=== PATIENT | male | born 1985 | race Hispanic/Latino ===

== ENCOUNTER → 2016-10-02 | Outpatient (CLI) | payer OTHER ==
[2016-10-02 16:48] LABS: ALBUMIN 4.4 GM/DL (3.2-5.2); ALBUMIN/GLOBULIN RATIO 1.38 (1.00-1.93); ALKALINE PHOSPHATASE 70 U/L (45-117); ALT/SGPT 66 U/L (12-78); ANION GAP 6 MEQ/L (8-16); AST/SGOT 59 U/L (15-37); BILIRUBIN,TOTAL 0.7 MG/DL (0.2-1.0); BLOOD UREA NITROGEN 11 MG/DL (7-18); CALCIUM LEVEL 8.8 MG/DL (8.5-10.1); CARBON DIOXIDE LEVEL 30 MEQ/L (21-32); CHLORIDE LEVEL 104 MEQ/L (98-107); CREATININE FOR GFR 0.82 MG/DL (0.70-1.30); GLOMERULAR FILTRATION RATE > 60.0 (>60); GLUCOSE, FASTING 76 MG/DL (70-105); POTASSIUM SERUM 3.8 MEQ/L (3.5-5.1); SODIUM LEVEL 140 MEQ/L (136-145); TOTAL PROTEIN 7.6 GM/DL (6.4-8.2)
--- NOTE | 2016-10-02 23:22 | REP ---
MR angiography of the thoracic aorta with IV contrast: History: Intermittent pulsating episodes of chest pain, question aortic aneurysm. No comparison imaging. Gadolinium enhancement dose: 30 ml of intravenous ProHance is administered. MR technique: Axial and coronal true FISP and T2 HASTE images are acquired. 3-D MR angiography of the chest is acquired and maximum intensity projection images are generated in addition to the source images. MR angiographic findings: Thoracic aorta is normal in coarse, caliber and homogeneous in contrast enhancement. There is no evidence of thoracic aortic aneurysm or dissection. Great vessels are unremarkable. The celiac axis and SMA origins are unremarkable. Non stenotic right renal artery is seen. 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 No significant abnormality. Impression: Normal MRA angiography of the chest. No evidence to suggest thoracic aortic aneurysm or dissection. Signed by Gideon Cortes MD 10/03/2016 08:20 A
== END ==
LOC: M RAD 16:01
DX: R07.9 Chest pain, unspecified (principal)

== ENCOUNTER → 2016-10-02 | Outpatient (CLI) | payer OTHER ==
[2016-10-02 16:49] LABS: CHOLESTEROL LEVEL 201 MG/DL (<200); TRIGLYCERIDES LEVEL 106 MG/DL (<150)
== END ==
LOC: M LAB 15:31
PROVIDERS: ATTEND Internal Medicine Cardiovascular Disease
DX: R07.2 Precordial pain (principal)